=== PATIENT | female | born 2000 | race Two or more races ===

== ENCOUNTER 2023-07-18 16:24 | Emergency (ER) | payer SELFPAY ==
--- NOTE | ~2023-07-18 | US_ITS ---
US OB <=14 wk fetus w TV DATE: 07/18/2023 21:26 INDICATION: Vaginal bleeding, left lower quadrant cramping, pain. Unsure of dates. TECHNIQUE: Real-time imaging via transabdominal and transvaginal approaches COMPARISON: None FINDINGS: Uterus measures 9 cm height, 4.57 hours AP and 5.4 cm transverse dimension. Intrauterine gestational sac is identified, with yolk sac and pole. No cardiac motion was observed by the technologist. Fitzpatrick-rump length 0.48 cm is consistent with 6 weeks 1 day estimated gestational age. 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 Right ovary 2.6 x 1.8 x 2.2 cm with 1.7 cm corpus luteum cyst. Left ovary 1.9 x 1.4 1.9 cm. No free pelvic fluid collection is detected. IMPRESSION: No cardiac motion is demonstrated; possible demise. Short-term follow-up pelv ic ultrasound imaging is recommended Fitzpatrick-rump length of 0.48 cm, which would be consistent with 6 weeks 1 day estimated gestational age Possible uterine anomaly; consider elective imaging workup with MR when practical. Reviewed, dictated and finalized at [facility]. Reviewed, dictated and finalized at [facility]. IMPRESSION: No cardiac motion is demonstrated; possible demise. Jamila rt-term follow-up pelvic ultrasound imaging is recommended Fitzpatrick-rump length of 0.48 cm, which would be consistent with 6 weeks 1 day michel mated gestational age Possible uterine anomaly; consider elective imaging workup with MR when practic al.
[2023-07-18 16:41] VITALS: BP 96/75; PULSE 89; RESP 18; TEMP 36.6; O2SAT 100
--- NOTE | 2023-07-18 20:01 | ED.PREGNANCY ---
HPI - General Chief complaint: Vaginal Bleeding Stated complaint: vaginal bleeding - LMP 05/19 - + test Time Seen by Provider: 07/18/23 19:52 Source: patient Mode of arrival: ambulatory Limitations: no limitations History of Present Illness HPI Narrative: Patient is a 23 y/o female who presents to the ED with c/o abdominal cramping and vaginal bleeding. Patient reports her last normal menstrual cycle was 05/19. She tested positive for 2 weeks ago via home test. This is her first . She states she has planned to follow-up with [facility] [place], but does not currently have an appointment. She reports having intermittent lower abdominal cramping for the last couple of weeks, which became more severe over the last 3 days. Pain is worse on her left side and radiates around to her low back. She also reports having vaginal spotting over the last 3 days, which became more bright red and heavier today. Denies significant nausea or vomiting. Denies urinary complaints. Denies fever. Patient reports she had an ultrasound performed 2 weeks ago at a clinic in [place], but they were not able to confirm IUP or heart rate due to gestational age. Related Data Allergies Allergy/AdvReac Type Severity Reaction Status Date / Time No Known Allergies Allergy Verified 07/18/23 16:26 Review of Systems Review of Systems: CONSTITUTIONAL: Denies fever, chills, or sweats. CARDIOVASCULAR: Denies chest pain. RESPIRATORY: Denies dyspnea. GASTROINTESTINAL: See HPI. GENITOURINARY: See HPI. SKIN: Denies rash or itching. MUSCULOSKELETAL: See HPI. NEUROLOGIC: Denies headache, numbness, or weakness. All systems reviewed & are unremarkable except as noted in HPI and below Exam Narrative: GENERAL: Mildly uncomfortable appearing, thin, non-toxic, in no acute distress. HEAD: Normocephalic, atraumatic. NECK: Supple. No adenopathy, no masses. RESPIRATORY: Airway patent, respirations nonlabored. Clear to auscultation bilaterally, no rales, rhonchi, wheezing. CARDIOVASCULAR: Regular rate and rhythm without murmurs, rubs, or gallops. Radial pulses 2+ and equal bilaterally. ABDOMINAL: Soft, mild tenderness in left lower abdomen/pelvic region, nondistended, no hepatosplenomegaly. Normoactive BS. PELVIC: Normal external genitalia. Vaginal vault with dark brown vaginal discharge, no active bright red bleeding. No signs of hemorrhage or pooling of fluid. Cervix appears normal, no definitive opening of os. MUSCULOSKELETAL: Moves all extremities. Strength/ROM intact without gross deformities. SKIN: Warm, dry, normal color. No rashes. NEURO: A&O X3. Speech clear. Cranial nerves II-XII grossly intact. Steady gait. No ataxic movements. PSYCHIATRIC: Timid, flat affect. Normal interaction. Course Vital Signs Vital signs: Vital Signs Temperature 97.8 F 07/18/23 16:41 Pulse Rate 89 07/18/23 16:41 Respiratory Rate 18 07/18/23 16:41 Blood Pressure 96/75 L 07/18/23 16:41 Pulse Oximetry 100 07/18/23 16:41 Oxygen Delivery Room Air 07/18/23 16:41 Temperature 97.8 F 07/18/23 16:41 Pulse Rate 88 07/18/23 22:11 Respiratory Rate 14 07/18/23 22:11 Blood Pressure 121/77 07/18/23 22:11 Pulse Oximetry 100 07/18/23 22:11 Oxygen Delivery Room Air 07/18/23 16:41 MDM - OB/Uterine Contractions MDM Narrative Medical decision making narrative: Patient presented to ED with positive , unsure of gestational age, reporting lower abdominal cramping and vaginal bleeding. Vitals stable upon arrival though patient mildly uncomfortable appearing. Beta quant today ~15K. Obstetric ultrasound obtained and without heart motion. Likely demise. Measuring around 6 weeks. I do believe this is consistent with demise as patient reports ultrasound at outpatient clinic 2 weeks ago also showed a 6 weeks gestational age. No further development seen on ultrasound today.
[2023-07-18 20:49] LABS: Appearance Urine Clear (Clear); Bacteria Urine None Seen /hpf; Bilirubin Urine Negative (Negative); Blood Urine 2+ (Negative); Color Urine Yellow (Yellow); Glucose Urine UA Negative (Negative); Ketones Urine Negative (Negative); Leukocyte Esterase Ur Negative LEU/UL (Negative); Nitrate Urine Negative (Negative); Non Pathogenic Casts 0-2; Protein Urine Negative (Negative); Specific Grav Ur 1.011 (1.001-1.035); Squamous Epithelial Cell Urine None seen /hpf (Few); Urobilinogen Urine 0.2 mg/dL (<2.0); WBC Urine 0-5 /hpf; pH Urine 6.5 (5.0-9.0)
[2023-07-18 20:52] LABS: Add Urine Microscopic? YES
[2023-07-18 22:11] VITALS: BP 121/77; PULSE 88; RESP 14; O2SAT 100
[2023-07-18 22:21] LABS: Basophils Percent Auto 0.3 % (0.2-1.2); Eosinophils Absolute Auto 0.1 K/mm3 (0-0.3); Eosinophils Percent Auto 0.7 % (0-4.4); Hematocrit 37.6 % (37.0-47.0); Hemoglobin 12.8 g/dL (12.0-15.0); Immature Granulocyte Absolute 0.03 K/mm3 (0.00-0.031); Immature Granulocyte Percent A 0.3 % (0-0.5); Lymphocytes Absolute Auto 3.22 K/mm3 (0.9-3.2); Lymphocytes Percent Auto 30.6 % (18.3-44.2); Mean Corpuscular Hemoglobin 26.7 pg (26-34); Mean Corpuscular Volume 78.5 fl (80-100); Mean Platelet Volume 10.1 fl (7.4-10.4); Monocytes Absolute Auto 0.6 K/mm3 (0.1-0.6); Monocytes Percent Auto 5.4 % (2.6-8.5); Neutrophils Absolute Auto 6.6 K/mm3 (1.3-6.7); Neutrophils Percent Auto 62.7 % (45.5-73.1); Platelet Count Result 316 k/mm3 (150-375); Red Blood Count 4.79 M/mm3 (4.2-5.4); Red Cell Distribution Width 15.1 % (11.5-14.5); White Blood Count 10.5 K/mm3 (4.5-10.0)
[2023-07-18] MEDS: ACETAMINOPHEN 500 MG TABLET 1000 MG PO (22:27)
[2023-07-18 22:32] LABS: Alanine Aminotransferase 14 U/L (6-35); Albumin Level 4.8 g/dL (3.5-5.1); Alkaline Phosphatase 42 U/L (38-126); Anion Gap 10 mmol/L (8-16); Aspartate Amino Transferase 23 U/L (14-36); Bilirubin,Total 0.4 mg/dL (0.2-1.3); Blood Urea Nitrogen 7 mg/dL (7-17); Calcium 9.5 mg/dL (8.4-10.2); Carbon Dioxide 24 mmol/L (22-30); Chloride 102 mmol/L (98-107); Estimated Glomerular Filt Rate > 60; Glucose 107 mg/dL (65-110); Potassium 3.5 mmol/L (3.4-5.0); Sodium 136 mmol/L (137-145)
[2023-07-19] MEDS: RHO(D) IMMUNE GLOBULIN 300 MCG/2 ML SYRINGE IM (01:11)
[2023-07-19 01:13] VITALS: BP 138/79; PULSE 88; RESP 12; O2SAT 100
== END 2023-07-19 02:04 | disposition home or self-care (01) ==
PROVIDERS: Emergency Provider Physician Assistant
DX: O02.1 Missed abortion (principal)
CPT/HCPCS: 36415; 76801; 76817; 80053; 81001; 84702; 85025; 85461; 86850; 86900; 86901; 90384; 96372; 99284; A9270; J2790

== ENCOUNTER 2023-07-21 10:27 | Emergency (ER) | payer SELFPAY ==
[2023-07-21 10:34] VITALS: BP 115/89; PULSE 103; RESP 18; TEMP 37.2; O2SAT 98
[2023-07-21 10:52] LABS: Basophils Percent Auto 0.3 % (0.2-1.2); Eosinophils Percent Auto 0.2 % (0-4.4); Hematocrit 33.7 % (37.0-47.0); Hemoglobin 11.8 g/dL (12.0-15.0); Immature Granulocyte Absolute 0.03 K/mm3 (0.00-0.031); Immature Granulocyte Percent A 0.3 % (0-0.5); Lymphocytes Absolute Auto 1.75 K/mm3 (0.9-3.2); Lymphocytes Percent Auto 18.1 % (18.3-44.2); Mean Corpuscular Volume 77.1 fl (80-100); Mean Platelet Volume 9.6 fl (7.4-10.4); Monocytes Absolute Auto 0.7 K/mm3 (0.1-0.6); Monocytes Percent Auto 6.9 % (2.6-8.5); Neutrophils Absolute Auto 7.2 K/mm3 (1.3-6.7); Neutrophils Percent Auto 74.2 % (45.5-73.1); Platelet Count Result 287 k/mm3 (150-375); Red Blood Count 4.37 M/mm3 (4.2-5.4); Red Cell Distribution Width 14.5 % (11.5-14.5); White Blood Count 9.7 K/mm3 (4.5-10.0)
[2023-07-21 12:17] LABS: Appearance Urine Clear (Clear); Bacteria Urine None Seen /hpf; Bilirubin Urine Negative (Negative); Blood Urine 3+ (Negative); Color Urine Yellow (Yellow); Glucose Urine UA Negative (Negative); Ketones Urine Negative (Negative); Leukocyte Esterase Ur Trace LEU/UL (Negative); Nitrate Urine Negative (Negative); Non Pathogenic Casts 0-2; Protein Urine Negative (Negative); RBC Urine 51-100 /hpf (0-2); Specific Grav Ur 1.022 (1.001-1.035); Squamous Epithelial Cell Urine Occasional /hpf (Few); Urobilinogen Urine 0.2 mg/dL (<2.0); WBC Urine 0-5 /hpf
[2023-07-21 12:30] LABS: Add Urine Microscopic? YES
--- NOTE | 2023-07-21 13:02 | ED.PREGNANCY ---
HPI - General Chief complaint: Vaginal Bleeding Stated complaint: vag bleed, 6-8 weeks preg Time Seen by Provider: 07/21/23 12:05 Source: patient and RN notes reviewed Mode of arrival: ambulatory Limitations: no limitations History of Present Illness HPI Narrative: This is a 23 year old female 7 weeks GA who presents for evaluation of miscarriage. Patient was evaluated 3 days ago for vaginal bleeding and abdominal cramping. sHe has labs and US which showed demise. She was referred to [facility] [place] and told to see today. She reports that she called today and she was told to come to ER because she was having heavy bleeding. She reports using 3 pads yesterday and 1 pad today. She has not taken anything for her pain today. Related Data Allergies Allergy/AdvReac Type Severity Reaction Status Date / Time No Known Allergies Allergy Verified 07/18/23 16:26 Review of Systems Constitutional: Constitutional: Denies weakness Cardiovascular: Cardiovascular: Denies syncope, Denies rapid heart rate, Denies irregular heart rhythm, Denies leg edema and Denies dyspnea Respiratory: Respiratory: Denies chest congestion, Denies hemoptysis, Denies excessive phlegm production and Denies dyspnea Gastrointestinal: Gastrointestinal: Denies abdominal pain, Denies hematochezia, Denies diarrhea and Denies vomiting Genitourinary: Genitourinary: Reports abnormal vaginal bleeding, Denies hematuria and Denies dysuria Musculoskeletal: Musculoskeletal: Denies joint swelling, Denies loss of height and Denies muscle weakness Neurologic: Denies syncope, Denies focal weakness and Denies weakness PMFSH Past Medical History Medical History (Updated 07/21/23 @ 13:16 by Vianey Ramos MD) Patient denies medical problems Surgical History Surgical History (Updated 07/21/23 @ 22:43 by Vianey Ramos MD) No pertinent past surgical history Social History Social History (Updated 07/21/23 @ 13:11 by Vianey Ramos MD) Smoking status: Never smoker Exam Const: General: no acute distress and alert Nutritional Appearance: thin Orientation/consciousness: patient oriented x3 HENMT: Head: normal to inspection Eyes: EOM: EOMs intact bilaterally Resp: Effort & Inspection: normal respiratory effort Cardio: Rate: regular rate Rhythm: regular rhythm Heart sounds: no murmurs GI: GI Palp: Yes Soft to palpation, No Tenderness to palpation present (GI), No Guarding due to palpation present (GI) and No Rigid due to palpation Auscultation: normal bowel sounds : Other: small amount of dark blood, no large clots. Skin: General skin exam: normal color Rashes: no rashes Wounds: no wounds Neuro: General: patient oriented x3, moves all extremities and CN's II-XI intact bilaterally Psych: Mental Status: mental status grossly normal Affect: normal affect Attitude: cooperative Course Reevaluation(s) Reevaluation #1: I discussed with patient that she will be see in clinic today. Will also given her some ibuprofen and tylenol. She was given rhogam 3 days ago. Date: 07/21/23 Time: 13:13 Consultations Consultation #1: I spoke with Dr. French about patient. I discussed her visit from 3 days ago and we discussed if repeat US. He does not want repeat US. HCG decreasing so consistent with miscarriage. He will see patient in clinic this afternoon. Date: 07/21/23 Time: 13:12 Vital Signs Vital signs: Vital Signs Temperature 99 F 07/21/23 10:34 Pulse Rate 103 H 07/21/23 10:34 Respiratory Rate 18 07/21/23 10:34 Blood Pressure 115/89 07/21/23 10:34 Pulse Oximetry 98 07/21/23 10:34 Temperature 99 F 07/21/23 10:34 Pulse Rate 103 H 07/21/23 10:34 Respiratory Rate 18 07/21/23 10:34 Blood Pressure 115/89 07/21/23 10:34 Pulse Oximetry 98 07/21/23 10:34 MDM - OB/Uterine Contractions Differential Diagnosis Differential diagnosis: Likely other (miscarriage, incompl
[2023-07-21] MEDS: ACETAMINOPHEN 325 MG TABLET 650 MG PO (13:09)
[2023-07-21] MEDS: IBUPROFEN 400 MG TABLET PO (13:10)
== END 2023-07-21 13:33 | disposition home or self-care (01) ==
PROVIDERS: Emergency Medicine; Emergency Provider General Practice
DX: O02.1 Missed abortion (principal)
CPT/HCPCS: 36415; 81001; 81025; 84702; 85025; 85461; 86850; 86880; 86900; 86901; 86902; 99284; A9270

== ENCOUNTER 2023-07-23 00:05 | Day surgery (SDC) | payer OTHER, SELFPAY ==
[2023-07-22 10:18] VITALS: BMI 18.7
--- NOTE | 2023-07-22 10:21 | PC.NURSE ---
Report to the Outpatient Waiting Room, entrance under the green pavilion located off [facility], at time 1330 on date 07/23/23. Planned Procedure Time: 1530. Time changes happen often and if your time is changed the preop area will call you the afternoon before. - You and your visitor will be asked to self-screen and do not enter if you have any COVID symptoms. - A mask is optional within the hospital at this time. Patients may have clear liquids (water, carbonated beverages, clear teas, apple juice) until 3 hours prior to surgery with a maximum of 20 ounces. - No food from midnight until time of surgery Take the following medications with a SIP of water the morning of surgery: NONE DO NOT STOP ANY OF YOUR OTHER PRESCRIPTION MEDICATIONS PRIOR TO SURGERY ?EXCEPT THE FOLLOWING Medications to discontinue per physician: N/A Date to take last dose: N/A Please no make-up, nail yi, hairspray, perfume, deodorant, or body powder the day of surgery. No jewelry (including any body piercings) or valuables the day of surgery, leave them at home. Please take a shower or bath the night before, or the morning of, surgery with an antibacterial soap. Wear comfortable, loose fitting clothing. - Jewelry must be removed prior to entering the operating room. Rings and piercings that are not removed may be cut off. - The hospital will not accept responsibility for valuables. - Please leave all valuables, including medications, at home the day of surgery. If you are going home after surgery, a licensed combine driver must drive you home. - NO public transportation without another adult if you receive anesthesia. - We recommend that an adult stay with you for 24 hours following discharge. - We also recommend that you do not drive, make important decision, drink alcoholic beverages, or take any drugs that were not prescribed by your health care provider for at least 24 hours after your discharge time. Follow any additional instructions given to you from your surgeon. If you or anyone in your household have experienced Covid symptoms in the past week, please notify your surgeon or the nurse liaison at the phone number below for possible testing. Telephone instructions given to PT & FRIEND and asked if any additional questions and then verbalized understanding. Patient advised to call surgeon office or pre surgery nurse liaison [phone] if any additional questions.
[2023-07-23 11:20] VITALS: BP 124/95; PULSE 105; RESP 18; TEMP 36.1; O2SAT 100; BMI 19.5
[2023-07-23] MEDS: LACTATED RINGERS 1,000 ML 30 ML IV CONT (12:15)
[2023-07-23] MEDS: ACETAMINOPHEN 500 MG TABLET 1000 MG PO (12:32)
--- NOTE | 2023-07-23 12:44 | P.PNAN_ITS ---
Anes - Initial Pre Proc Eval Procedure: Operation Date: 07/23/23 13:30 Proposed Procedures p Suction Dilation and Curettage - La Nena French MD Date/Time: 07/23/23 12:44 Surgeon: La Nena French MD Pre Op Diagnosis: missed ab Patient Data Age: 23 Gender: F Height: 1.52 m Weight: 43.55 kg Allergies Allergy/AdvReac Type Severity Reaction Status Date / Time No Known Allergies Allergy Verified 07/22/23 10:17 Home Medications Medication Instructions Recorded Confirmed Type ibuprofen 600 mg tablet 600 mg PO TID PRN Pain 07/22/23 07/22/23 History Patient hx anesthesia problems: none Family hx anesthesia problems: none Results Review: All pre-operative results and documents have been reviewed as part of the pre- operative evaluation. [facility] Past Medical History Medical History Patient denies medical problems Surgical History Surgical History No pertinent past surgical history Social History Social History Smoking status: Never smoker Alcohol intake: never Substance use: never Substance use type: does not use Living arrangements: with roommate(s) Spiritual care concerns: No Anes - Eval Final PreProcedure Day of Procedure 07/23/23 12:44 Patient weight: thin Heart: regular rate and rhythm Lungs: clear to auscultation Airway: Mallampati scale class II Neurological: alert and oriented Last oral intake: >/= 8 hours ASA classification: II Emergent: no Anesthetic plan: proceed Anesthesia type and monitoring: general GIVS and standard monitoring Results Review: All pre-operative results and documents have been reviewed as part of the pre- operative evaluation. Informed Consent: The patient's anesthetic plan and its attendant risks and benefits were discussed with the patient/family/POA. Questions were solicited and answers provided to the satisfaction of the patient/family/POA.
--- NOTE | 2023-07-23 13:07 | WPDHPUPDATE1 ---
History and Physical Update Update Date/Time: 07/23/23 13:07 History and Physical has been reviewed, including an updated exam of the patient. There are NO changes in the patient's condition. Risks, benefits, and alternatives have been discussed and questions answered. Patient agrees to proceed with procedure.
--- NOTE | 2023-07-23 13:08 | SUR.PREOP ---
1308- Notified Dr. French patient's blood type is A negative. Per Dr. French no dose of Rhogam needed with last dose being given on 07/18/2023.
[2023-07-23 13:52] VITALS: BP 114/76; PULSE 93; RESP 16; O2SAT 100
--- NOTE | 2023-07-23 13:59 | W.PM.PROC2 ---
Procedure Note - Detailed Date of Procedure 07/23/23 Pre-op Diagnosis missed ab Post-op Diagnosis Same Procedure Performed Suction D&C Surgeon La Nena French MD Anesthesia MAC Indications missed Findings normal-appearing vulva vagina and cervix to. Moderate amount of products conception within the uterus. 8 cm uterus Description of Procedure the patient was taken the operating room. She was prepped and draped in dorsal lithotomy position after induction of mac anesthesia. A speculum was placed in the vagina. Cervix grasped with tenaculum. The cervix was dilated to about 1 cm Using Petersen dilators. A 8. Upper Sorbian curved curette was used to perform suction D&C. The curette was introduced and vacuum was applied. The curette was removed over all surfaces of the intrauterine cavity multiple times. This was done until all the surfaces were clear and had the familiar grainy texture they can be felt through the instrument. A sharp curette was then used to curettage all the surfaces. The suction cup was then reapplied 1 more time to remove any debris. The instruments were removed. The speculum and tenaculum were removed. The patient tolerated the procedure well. She was taken recovery room stable condition. Estimated Blood Loss -75.0 Drains No Packing No Pathology Yes Complications No immediate complications Condition Stable Disposition PACU
[2023-07-23 14:20] VITALS: BP 114/76; PULSE 93; RESP 16; O2SAT 100
[2023-07-23 14:50] VITALS: BP 118/84; PULSE 95; RESP 16; O2SAT 100
[2023-07-23 15:19] VITALS: BP 128/89; PULSE 71; RESP 16
== END 2023-07-23 15:37 | disposition home or self-care (01) ==
PROVIDERS: Visit Provider Obstetrics & Gynecology
PROC: (CPT 59820; principal; 2023-07-23 13:30)
DX: O02.1 Missed abortion (principal)
CPT/HCPCS: 59820; 88305; A9270; J2250; J3010; J7120